=== PATIENT | male | born 1980 | race Caucasian/White ===

== ENCOUNTER → 2021-03-15 15:11 | Outpatient (CLI) | payer BC, SELFPAY ==
--- NOTE | ~2021-03-15 | US_ITS ---
EXAMINATION: US soft tissue head and neck DATE: 03/15/2021 15:37 INDICATION: Right neck pain. TECHNIQUE: Multiple grayscale and Doppler ultrasound images of the right neck were obtained. COMPARISON: None FINDINGS: There is no abnormal mass or lymphadenopathy in the patient's area of concern in right neck . IMPRESSION: 1. No abnormal mass or lymphadenopathy in the patient's area of concern in right neck. Reviewed, dictated and finalized at location A. IMPRESSION: 1. No abnormal mass or lymphadenopathy in the patient's area of concern in righ t neck.
== END ==
PROVIDERS: PCP Internal Medicine; Visit Provider Physician Assistant Medical
DX: M54.2 Cervicalgia (principal)
CPT/HCPCS: 76536

== ENCOUNTER 2021-08-09 01:07 | Day surgery (SDC) | payer BC, SELFPAY ==
[2021-07-26 09:59] VITALS: BMI 26.4
[2021-08-09 11:29] VITALS: BP 130/73; PULSE 98; RESP 20; TEMP 36.5; O2SAT 96; BMI 25.9
[2021-08-09] MEDS: LACTATED RINGERS 1,000 ML 150 ML IV CONT (11:38)
--- NOTE | 2021-08-09 11:43 | SUR.PREOP ---
1141 PATIENT COMPLAINS OF NAUSEA AND RIGHT ARM FEELING COLD, HOB LOWERED, IV SLOWED DOWN, COOL WET WASHCLOTH PLACED ON PATIENT'S FOREHEAD, ALCOHOL PAD PLACED UNDER PATIENT'S NOSE. WARM BLANKET PLACED ON PATIENT'S RIGHT ARM, PATIENT RESTING AT PRESENT. 1145 RE-CHECK PATIENT, HE SAYS THE NAUSEA IS BETTER, PATIENT RESTING COMFORTABLY ON STRETCHER, CALL LIGHT IN REACH.
--- NOTE | 2021-08-09 11:51 | P.PNAN_ITS ---
Anes - Initial Pre Proc Eval Procedure: Operation Date: 08/09/21 12:30 Proposed Procedures p Screening Colonoscopy - Toney Osborn MD Date/Time: 08/09/21 11:51 Surgeon: Toney Osborn MD Pre Op Diagnosis: hx of colon polyps Patient Data Age: 41 Gender: M Height: 1.8 m Weight: 84.3 kg Last Vital Signs Temp 36.5 C 08/09/21 11:29 Pulse 98 08/09/21 11:29 Resp 20 08/09/21 11:29 BP 130/73 08/09/21 11:29 Pulse Ox 96 08/09/21 11:29 Allergies Allergy/AdvReac Type Severity Reaction Status Date / Time NKDA Allergy Unknown Uncoded 08/09/21 11:28 Home Medications Medication Instructions Recorded Confirmed Type Adults Multivitamin 1 tablet PO DAILY 07/26/21 07/26/21 History Patient hx anesthesia problems: none Family hx anesthesia problems: none Results Review: All pre-operative results and documents have been reviewed as part of the pre-operative evaluation. COUNTS INCLUDE 234 BEDS AT THE [facility] Family History Family History Father Family history of diabetes mellitus in first degree relative Other Diabetes mellitus Social History Social History Smoking status: Never smoker Alcohol intake: current Drinks per week: 1 Alcohol use details: 0-1 average drinks per week Substance use type: does not use Living arrangements: with family Spiritual care concerns: No Anes - Eval Final PreProcedure Day of Procedure 08/09/21 11:51 Patient weight: normal Heart: regular rate and rhythm Lungs: clear to auscultation Airway: Mallampati scale class 1 Neurological: alert and oriented Last oral intake: >/= 8 hours ASA classification: I Emergent: no Anesthetic plan: proceed Anesthesia type and monitoring: general GIVS and standard monitoring Results Review: All pre-operative results and documents have been reviewed as part of the pre-operative evaluation. Informed Consent: The patient's anesthetic plan and its attendant risks and benefits were discussed with the patient/family/POA. Questions were solicited and answers provided to the satisfaction of the patient/family/POA.
[2021-08-09 12:07] VITALS: BP 92/66; PULSE 91; RESP 17; O2SAT 93
--- NOTE | 2021-08-09 12:07 | WPDGICN ---
Assessment and Plan Assessment and plan (1) History of colon polyps: Code(s): Z86.010 - Personal history of colonic polyps Status: Acute Assessment and Plan: Patient has a distant history of colon polyps 10 years ago. He presents today for follow-up examination. Colonoscopy will be performed. Further recommendations will be given after endoscopy. GI Consult Note Consult date/time: 08/09/21 12:07 HPI: Devin Vazquez is a 41 year old male Presents for surveillance colonoscopy. He has a history of a colon polyp identified 10 years ago. His current weight appetite are normal. He has had a brief bout of constipation. He occasionally notices some flank pain. He denies any blood in his stools his weight has remained stable. Presents today for follow-up colonoscopy. Review of Systems Review of Systems: All systems reviewed & are unremarkable except as noted in HPI and below PMFSH Family History Family History Father Family history of diabetes mellitus in first degree relative Other Diabetes mellitus Social History Social History Smoking status: Never smoker Alcohol intake: current Drinks per week: 1 Alcohol use details: 0-1 average drinks per week Substance use type: does not use Living arrangements: with family Spiritual care concerns: No Meds Home Medications and Allergies Home Medications Medication Instructions Recorded Confirmed Type Adults Multivitamin 1 tablet PO DAILY 07/26/21 07/26/21 History Allergies Allergy/AdvReac Type Severity Reaction Status Date / Time NKDA Allergy Unknown Uncoded 08/09/21 11:28 Vital Signs Vital Signs - 24 hr 08/09/21 11:29 Temperature 97.7 F Pulse Rate 98 Respiratory Rate 20 Blood Pressure 130/73 Pulse Oximetry 96 Exam Narrative: Physical exam reveals patient to be alert. Vital signs stable. HEENT exam is unremarkable. Patient is anicteric. Lungs are clear to auscultation and percussion. Heart is without murmur or extra sounds. Abdominal exam bowel sounds present soft nontender with no organomegaly. Digital external rectal exam is normal.
--- NOTE | 2021-08-09 12:07 | SUR.OPER ---
Ascending colon polyp not retrieved, Dr. Osborn aware and no further instructions were given.
[2021-08-09 12:17] VITALS: BP 100/61; PULSE 100; RESP 24; O2SAT 100
[2021-08-09 12:27] VITALS: BP 106/75; PULSE 73; RESP 17; O2SAT 100
== END 2021-08-09 12:35 | disposition home or self-care (01) ==
PROVIDERS: PCP Internal Medicine; Visit Provider Internal Medicine Gastroenterology
PROC: 0DJD8ZZ Inspection of Lower Intestinal Tract, Via Natural or Artificial Opening Endoscopic (ICD-10-PCS; CPT 45378; principal; 2021-08-09 12:30)
DX: Z12.11 Encounter for screening for malignant neoplasm of colon (principal); D12.2 Benign neoplasm of ascending colon; K64.8 Other hemorrhoids
CPT/HCPCS: 45385; J2704; J7120

== ENCOUNTER → 2021-09-10 07:58 | Outpatient (CLI) | payer BC, SELFPAY ==
--- NOTE | ~2021-09-10 | US_ITS ---
EXAMINATION: US right upper quadrant EXAM DATE: 09/10/2021 08:16 INDICATION: RUQ abdominal pain . TECHNIQUE: Multiple grayscale and Doppler images of the abdomen right upper quadrant were obtained (b y a technologist who performed the scan) and subsequently reviewed. There is no prior study for lucia klein. FINDINGS: The pancreatic head and body are normal in appearance. The pancreatic tail is not visualized. The l iver has normal echogenicity and contour. There are no focal liver lesions identified. There is no evidence of intrahepatic biliary duct dilation. Portal venous flow was seen in the hepatopedal, nor mal direction and has normal Doppler waveform. No right-sided hydronephrosis. Common bile duct measures 3 mm, which is normal. The gallbladder wall is normal in thickness, with ex pected amount of distention. No sonographic evidence of pericholecystic fluid. 3 small gallstones i dentified. Technologist performing exam reports patient did not demonstrate sonographic Finney's sig n. Please note that this sign is less reliable in patients who have received pain medication. IMPRESSION: 1. Cholelithiasis. Reviewed, dictated and finalized at location A. OR RECRUITER IMPRESSION: 1. Cholelithiasis.
== END ==
PROVIDERS: PCP Internal Medicine; Visit Provider Physician Assistant Medical
DX: R10.11 Right upper quadrant pain (principal); K80.20 Calculus of gallbladder without cholecystitis without obstruction
CPT/HCPCS: 76705

== ENCOUNTER 2021-09-23 08:22 | Outpatient (CLI) | payer BC, SELFPAY ==
--- NOTE | ~2021-09-23 | NM_ITS ---
EXAMINATION: NM hepatobiliary wo pharm DATE: 09/23/2021 11:12 INDICATION: Cholelithiasis COMPARISON: None. TECHNIQUE: 4.8 mCi Tc-99m mebrofenin (Choletec) was administered intravenously. Scintigraphic images of the abdomen were obtained for one hour. At the 1 hour time point, the patient drank 8 oz Ensure, and imaging was continued for 60 minutes. Gallbladder ejection fraction was calculated by the technol ogist. FINDINGS: There is normal clearance of radiotracer from the blood pool. There is homogeneous tracer u ptake by the liver. Activity progresses to the bowel and gallbladder. The gallbladder ejection fract ion (GBEF) is 24%. Note that with this technique, normal GBEF >= 33%. IMPRESSION: 1. Decreased gallbladder ejection fraction consistent with either gallbladder dysfunction or chronic cholecystitis in the appropriate clinical setting. Reviewed, dictated and finalized at location A. ERY STORE ASSOCIATE
== END 2021-09-23 08:23 | disposition home or self-care (01) ==
LOC: ANHIMG 08:25
PROVIDERS: PCP Internal Medicine; Visit Provider Surgery
DX: M54.9 Dorsalgia, unspecified (principal)
CPT/HCPCS: 78226; A9537

== ENCOUNTER 2021-12-13 08:36 | Outpatient (CLI) | payer BC, SELFPAY ==
[2021-12-13 09:10] LABS: Alanine Aminotransferase 20 U/L (4-50); Albumin Level 4.8 g/dL (3.5-5.1); Alkaline Phosphatase 73 U/L (38-126); Amylase 61 U/L (30-110); Aspartate Amino Transferase 27 U/L (17-59); Bilirubin,Total 0.7 mg/dL (0.2-1.3); Lipase 30 U/L (23-300)
== END 2021-12-13 08:37 | disposition home or self-care (01) ==
LOC: ANHSURGERY 08:39
PROVIDERS: PCP Internal Medicine; Visit Provider Surgery
DX: K80.10 Calculus of gallbladder with chronic cholecystitis without obstruction (principal); Z01.818 Encounter for other preprocedural examination
CPT/HCPCS: 36415; 80076; 82150; 83690; 86850; 86900; 86901

== ENCOUNTER 2021-12-18 00:01 | Day surgery (SDC) | payer BC, SELFPAY ==
[2021-12-10 15:09] VITALS: BMI 26.1
--- NOTE | 2021-12-10 15:13 | PC.NURSE ---
Report to the Outpatient Waiting Room, entrance under the green pavilion located off [facility], at time __0600_ on date _[id number]_. OR Time: __729__. - You and your visitor will be asked a series of questions to screen for COVID 19 for your protection. - A mask is required within the hospital. Preoperative COVID Testing Requirements: No COVID Test needed if: (proof is required; if not received patient will have Rapid Test prior to entry) - Patient has received COVID Vaccine at least 14 days prior to procedure date or - Patient has positive COVID test result within last 90 days of surgery date. COVID Test needed if above criteria is not met If not COVID vaccinated a COVID test must be conducted within 72 hours of surgery and patient is asked to isolate self from time of testing until procedure. You will go to the [facility] for your COVID testing. The [facility] site is located at the corner of [address] [facility]. You will only be called if COVID results are positive and your surgeon may reschedule your elective surgery date. Patients may have clear liquids (water, carbonated beverages, clear teas, apple juice) until 3 hours prior to surgery with a maximum of 20 ounces. - No food from midnight until time of surgery - Infants may have breast milk until 4 hours before surgery, formula 6 hours prior to surgery. - Children will be allowed to drink immediately following surgery. If applicable, please bring a bottle or sippy cup to assist with drinking. Juice, water, soda, and popsicles are readily available. For infants on formula, please bring formula the day of surgery. Pacifiers are allowed. Take the following medications with a SIP of water the morning of surgery: Medications to discontinue per physician Date to take last dose Please no make-up, nail maori, hairspray, perfume, deodorant, or body powder the day of surgery. No jewelry (including any body piercings) or valuables the day of surgery, leave them at home. Please take a shower or bath the night before, or the morning of, surgery with an antibacterial soap. Wear comfortable, loose fitting clothing. Children are encouraged to wear pajamas. - Jewelry must be removed prior to entering the operating room. Rings and piercings that are not removed may be cut off. - The hospital will not accept responsibility for valuables. - Please leave all valuables, including medications, at home the day of surgery. If you are going home after surgery, a licensed bus driver/monitor must drive you home. - NO public transportation without another adult. - We recommend that an adult stay with you for 24 hours following discharge. - We also recommend that you do not drive, make important decision, drink alcoholic beverages, or take any drugs that were not prescribed by your health care provider for at least 24 hours after your discharge time. For Pediatric surgeries, we recommend two adults accompany the child home (only one inside the building at this time). One visitor will be allowed to accompany the patient into the hospital. Patients visitor will be instructed to remain with patient at all times or leave the building. We will allow the visitor to come back to the postoperative area when patient is ready. Follow any additional instructions given to you from your surgeon. Telephone instructions given to Patient and asked if any additional questions and then verbalized understanding. Patient advised to call surgeon office or pre surgery nurse liaison [phone] if any additional questions.
--- NOTE | 2021-12-17 12:28 | WPDANESEPPF ---
Anes - Initial Pre Proc Eval Procedure: Operation Date: 12/18/21 07:30 Proposed Procedures p Laparoscopic Cholecystectomy - Dorian Alcala MD Date/Time: 12/17/21 12:28 Surgeon: Dorian Alcala MD Pre Op Diagnosis: chronic cholecystitis with stones Patient Data Age: 41 Gender: M Height: 1.8 m Weight: 85 kg Allergies Allergy/AdvReac Type Severity Reaction Status Date / Time NKDA Allergy Unknown Unknown Uncoded 12/18/21 06:51 Home Medications Medication Instructions Recorded Confirmed Type No Home Medications 12/10/21 12/18/21 History Patient hx anesthesia problems: none Family hx anesthesia problems: none Results Review: All pre-operative results and documents have been reviewed as part of the pre-operative evaluation. 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 Informed Consent: The patient's anesthetic plan and its attendant risks and benefits were discussed with the patient/family/POA. Questions were solicited and answers provided to the satisfaction of the patient/family/POA.
--- NOTE | 2021-12-17 13:04 | PM.SD2 ---
Same Day Admit/Disch: HPI History of Present Illness Chief complaint: chronic cholecystitis with stones Narrative: Devin Vazquez is a 41 year old male Who 10 years ago had right upper quadrant abdominal pain that radiated through to his back and down to his right groin. He had a CT scan at that time which did show gallstones but no evidence of cholecystitis. At that time he was not felt to have indications for cholecystectomy. He did well for a long time but then for the last 8 months he has had recurrent episodes of right upper quadrant but mostly right thoracic back pain. This is aggravated by eating. He rarely eats fatty or greasy foods. He had a gallbladder ultrasound last August which showed gallstones but no evidence of cholecystitis. In September, he had a HIDA scan which showed a low gallbladder ejection fraction of 24%. He has a family history of gallbladder disease in that his mother had her gallbladder removed. He is taken to surgery now for laparoscopic cholecystectomy. [facility] Past Medical History Medical History (Updated 12/18/21 @ 08:28 by Dorian Alcala MD) Asthma History of colon polyps Surgical History Surgical History (Updated 12/18/21 @ 08:28 by Dorian Alcala MD) S/P laparoscopic cholecystectomy 12/18/21 for chronic maty with stones Family History Family History Father Family history of diabetes mellitus in first degree relative Other Diabetes mellitus Social History Social History Smoking status: Never smoker Alcohol intake: current Drinks per week: 1 Alcohol use details: 0-1 average drinks per week Substance use type: does not use Living arrangements: with family Additional occupation/education comments: [employer] Spiritual care concerns: No Same Day Admit/Disch: Med Pre-admit Medications Home Medications Medication Instructions Recorded Confirmed Type No Home Medications 12/10/21 12/18/21 History hydrocodone-acetaminophen 1 - 2 tablet PO Q6H PRN #10 tablet 12/18/21 Rx ketorolac 10 mg PO Q6H 4 Days #16 tablet 12/18/21 Rx Exam Const: General: comfortable, no acute distress, alert and awake HENMT: Head: normocephalic and atraumatic Mouth: Yes Normal oral and palatal mucosa present Eyes: Conjunctivae: conjunctivae normal Pupils: Equal, round and reactive pupils present EOM: EOMs intact bilaterally Neck: Neck: normal visual inspection, no lymphadenopathy and nontender Resp: Effort & Inspection: normal respiratory effort Auscultation: clear to auscultation bilaterally Cardio: Rate: regular rate Rhythm: regular rhythm Heart sounds: no gallops, no murmurs and no rubs GI: Inspection: non-distended GI Palp: Yes Soft to palpation, No Tenderness to palpation present (GI), No Hepatomegaly present and No Splenomegaly present Skin: Lesions: no lesions Rashes: no rashes Neuro: General: no focal motor deficits and CN's II-XI intact bilaterally Cranial nerves: Yes Equal, round and reactive pupils present, Yes Bilaterally intact EOM present, Yes facial symmetry and Yes Midline tongue present Speech: normal speech Motor exam (neuro): 5/5 motor strength present throughout and Motor abnormalities not present Extrem: General: no clubbing, cyanosis or edema and edema Psych: Affect: normal affect Thought process: Normal thought process present Insight: Good insight present (Psych) DS: Summary Time Spent with Patient Time attestation: Total time spent providing and/or coordinating discharge services: DS: Admitting Diagnosis Discharge Date 12/18/2021 Admitting Diagnosis chronic cholecystitis, cholelithiasis- plan is to proceed with laparoscopic cholecystectomy as an outpatient. The procedure, the risks the benefits have been discussed. All questions were answered. He understands and agrees to go ahead. Discharge Plan Discharge Patie
[2021-12-18] VITALS (8 sets, daily range): BP systolic 104–117; BP diastolic 59–74; PULSE 54–78; RESP 12–16; TEMP 36.3–36.4; O2SAT 97–100
[2021-12-18] MEDS: ACETAMINOPHEN 500 MG TABLET 1000 MG PO (06:52)
[2021-12-18] MEDS: LACTATED RINGERS 1,000 ML 30 ML IV CONT ×2 (07:10→08:33)
[2021-12-18] MEDS: KETOROLAC 15 MG/ML VIAL (*BKC) IV PUSH (07:11)
--- NOTE | 2021-12-18 07:11 | WPDHPUPDATE1 ---
History and Physical Update Update Date/Time: 12/18/21 07:11 History and Physical has been reviewed, including an updated exam of the patient. There are NO changes in the patient's condition. Risks, benefits, and alternatives have been discussed and questions answered. Patient agrees to proceed with procedure.
[2021-12-18] MEDS: ceFAZolin 2 GM/D5W 50 ML 2 GM/50 ML BAG IVPB (07:20)
[2021-12-18] MEDS: BUPIVACAINE/EPINEPHRINE 0.25% 10 ML VIAL 30 ML INFILTRATE (07:54)
--- NOTE | 2021-12-18 08:29 | W.PM.PROC2 ---
Procedure Note - Detailed Date of Procedure 12/18/21 Pre-op Diagnosis chronic cholecystitis with stones Post-op Diagnosis Same Procedure Performed Laparoscopic cholecystectomy Surgeon Dorian Alcala MD Treatment Supervisor Esmer YATES Anesthesia General and Local (0.25% Marcaine with epinephrine) Indications Patient has had postprandial right upper quadrant and right thoracic back pain for quite some time. He had an ultrasound that showed gallstones. He also had a HIDA scan that showed a low gallbladder ejection fraction. He is taken to surgery now for laparoscopic cholecystectomy. Findings Adhesions to the gallbladder, chronic inflammation, normal liver. No biliary ductal dilatation. Description of Procedure Patient was taken to surgery and induced into general anesthesia. The abdomen is prepped and draped. Trocars were placed in the usual fashion using 0.25% Marcaine with epinephrine and applied Medical optical trocars. A 5 mm camera was used. The gallbladder was freed from some adhesions to the fundus. A laparoscopic aspirator was then used to decompress the gallbladder. A Vicryl endoloop was used to close the cholecystotomy. The gallbladder was then retracted anterosuperiorly. With more of the omental adhesions to the gallbladder were taken down using cautery and gentle dissection. Eventually the gallbladder was exposed. Traction was placed on the infundibulum. Dissection was carried out in the cholecystohepatic triangle. The cystic duct and cystic artery were dissected out very clearly. The gallbladder was dissected off the liver at its lower 3rd. Critical view was achieved. We then securely clipped and divided the cystic duct and cystic artery. The gallbladder was then further freed from its attachments to the liver. It was placed in Endo-Catch bag and retrieved through the 10 11 epigastric trocar. We then replaced the 10 11 trocar. We reviewed the right upper quadrant. Irrigation and suctioning of the right upper quadrant was carried out. There was no bleeding from the gallbladder fossa. We checked the area of the adhesions and no bleeding from these was noted as well. All looked good. We then evacuated CO2 and removed the trocar sleeves. Skin wounds were closed with subcuticular 4-0 Monocryl skin suture. The wounds were dressed with Exofin surgical adhesive. Patient was awakened and taken to recovery in good condition. Sponge and needle counts were correct x2. Estimated Blood Loss -5 Drains No Packing No Pathology None sent Complications No immediate complications Condition Stable Disposition PACU
[2021-12-18] MEDS: fentaNYL CITRATE INJ (*CRX) 100 MCG/2 ML VIAL 25 MCG IV PUSH ×2 (08:57→09:04)
== END 2021-12-18 10:20 | disposition home or self-care (01) ==
PROVIDERS: PCP Internal Medicine; Visit Provider Surgery
PROC: 0FT44ZZ Resection of Gallbladder, Percutaneous Endoscopic Approach (ICD-10-PCS; CPT 47562; principal; 2021-12-18 07:30)
DX: K80.10 Calculus of gallbladder with chronic cholecystitis without obstruction (principal)
CPT/HCPCS: 47562; 36415; 80076; 82150; 83690; 86850; 86900; 86901; 88304; A9270; C1713; J0690; J1100; J1170; J1885; J2250; J2405; J2704; J2710; J3010; J7120

== ENCOUNTER 2024-09-02 10:44 | Outpatient (CLI) | payer BC, SELFPAY ==
--- NOTE | ~2024-09-02 | US_ITS ---
EXAMINATION: US soft tissue head and neck DATE: 09/02/2024 11:04 INDICATION: Localized swelling, mass and lump, neck. TECHNIQUE: Multiple grayscale and Doppler ultrasound images of the abdomen were obtained. COMPARISON: Ultrasound 03/15/2021 FINDINGS: There are normal lymph nodes in the patient's area of concern in right neck. IMPRESSION: 1. Normal lymph nodes in the patient's area of concern in right neck. Reviewed, dictated and finalized at location A. D SERVICE COORDINATOR
== END 2024-09-02 10:45 | disposition home or self-care (01) ==
LOC: MICIMG 10:45
PROVIDERS: PCP Nurse Practitioner Family; Visit Provider Nurse Practitioner Family
DX: R22.1 Localized swelling, mass and lump, neck (principal)
CPT/HCPCS: 76536